=== PATIENT | male | born 1940 | race Caucasian/White ===

== ENCOUNTER 2021-05-29 08:52 | Emergency (ER) | payer MEDICARE ==
[2021-05-29 09:54] LABS: #Eosinphils 0.1 thou/uL (0.0-0.7); #Lymphocytes 1.2 thou/uL (1.20-3.40); #Monocytes 0.5 thou/uL (0.11-0.59); #Neutrophils 2.7 thou/uL (1.40-6.50); %Basophils 0.3 % (0.0-1.0); %Eosinophils 2.4 % (0.0-10.0); %Lymphocytes 26.6 % (21.0-51.0); %Monocytes 10.7 % (0.0-10.0); Hemoglobin 13.6 g/dL (14.0-18.0); Mean Corpuscular HGB CONC 31.6 g/dL (32.0-36.0); Mean Corpuscular Hemoglobin 29.6 pg (27.0-31.0); Mean Corpuscular Volume 93.7 fL (78.0-98.0); Mean Platelet Volume 7.1 fL (7.4-10.4); Platelet Count 213 thou/uL (130-400); RBC Distribution Width 13.5 % (11.5-14.5); Red Blood Cell (RBC) Count 4.58 mill/uL (4.70-6.10); White Blood Cell (WBC) Count 4.4 thou/uL (4.8-10.8)
[2021-05-29 09:55] LABS: ALT (SGPT) Less than 7 U/L (8-55); AST (SGOT) 18 U/L (5-34); Albumin 3.3 g/dL (3.4-4.8); Alkaline Phosphatase 70 U/L (40-110); Anion Gap 15 mmol/L (10-20); BUN (Urea Nitrogen) 8 mg/dL (8.4-25.7); Bilirubin, Total 0.4 mg/dL (0.2-1.2); CK (CPK) 373 U/L (30-200); Calc. Creatinine Clearance 0 mL/min (70-130); Calcium 9.3 mg/dL (7.8-10.44); Carbon Dioxide 20 mmol/L (23-31); Chloride 105 mmol/L (98-107); Globulin 2.9 g/dL (2.4-3.5); Glucose 96 mg/dL (83-110); Lipase 9 U/L (8-78); Potassium 3.7 mmol/L (3.5-5.1); Protein, Total 6.2 g/dL (5.8-8.1); Sodium 136 mmol/L (136-145)
== END 2021-05-29 15:19 | disposition home or self-care (01) ==
LOC: ERS 08:52
DX: R10.84 Generalized abdominal pain (principal); R53.1 Weakness; R11.2 Nausea with vomiting, unspecified; T50.B95A Adverse effect of other viral vaccines, initial encounter; I48.91 Unspecified atrial fibrillation; Z79.01 Long term (current) use of anticoagulants; Z79.899 Other long term (current) drug therapy
CPT/HCPCS: 36415; 71045; 74177; 80053; 82550; 83690; 84484; 85025; 93005

== ENCOUNTER 2022-09-22 19:24 | Inpatient (IN) | payer OTHER, MEDICAID ==
[~2022-09-22 19:24] MED LIST: Iopamidol-370 76% 500 ML MDV (1 ML CHARGE) ONE
[2022-09-22] MEDS ORDERED: Ondansetron PF 4 MG/2 ML Vial ONE (19:57)
[2022-09-22 20:20] LABS: #Eosinphils 0.2 thou/uL (0.0-0.7); #Lymphocytes 1.7 thou/uL (1.20-3.40); #Monocytes 0.5 thou/uL (0.11-0.59); #Neutrophils 3.2 thou/uL (1.40-6.50); %Basophils 0.8 % (0.0-1.0); %Eosinophils 2.8 % (0.0-10.0); %Monocytes 8.2 % (0.0-10.0); %Neutrophils 57.2 % (42.0-75.0); Hemoglobin 13.8 g/dL (14.0-18.0); Mean Corpuscular HGB CONC 33.3 g/dL (32.0-36.0); Mean Corpuscular Hemoglobin 30.9 pg (27.0-31.0); Mean Corpuscular Volume 92.7 fl (78.0-98.0); Mean Platelet Volume 7.9 fL (7.4-10.4); Platelet Count 246 10x3/uL (130-400); RBC Distribution Width 13.5 % (11.5-14.5); Red Blood Cell (RBC) Count 4.48 mill/uL (4.70-6.10); White Blood Cell (WBC) Count 5.6 10x3/uL (4.8-10.8)
[2022-09-22 20:35] LABS: Bilirubin Negative (Negative); Blood, Urine Negative (Negative); Clarity Clear (Clear); Glucose, Urine (Dipstick) Normal (Negative); Ketone, Urine Trace mg/dL (Negative); Leukocyte Negative Leu/uL (Negative); Nitrite Negative (Negative); Protein, Urine (Dipstick) 10 mg/dL (Neg-Trace); Specific Gravity, Urine 1.032 (1.002-1.036); Urobilinogen Normal mg/dL (Less than 2)
[2022-09-22 21:10] LABS: ALT (SGPT) 18 U/L (8-55); AST (SGOT) 28 U/L (5-34); Albumin 4.1 g/dL (3.4-4.8); Alkaline Phosphatase 87 U/L (40-110); Anion Gap 17 mmol/L (10-20); BUN (Urea Nitrogen) 22 mg/dL (8.4-25.7); Bilirubin, Total 0.4 mg/dL (0.2-1.2); Calc. Creatinine Clearance 0 mL/min (70-130); Carbon Dioxide 24 mmol/L (23-31); Chloride 103 mmol/L (98-107); Estimated GFR 77; Globulin 2.8 g/dL (2.4-3.5); Glucose 158 mg/dL (83-110); Lipase 15 U/L (8-78); Potassium 4.3 mmol/L (3.5-5.1); Protein, Total 6.9 g/dL (5.8-8.1); Sodium 140 mmol/L (136-145)
[2022-09-22] MEDS ORDERED: Morphine 2 MG/ML VIAL ONE (21:49)
[2022-09-23 00:49] VITALS: BMI 20.3
[2022-09-23] MEDS ORDERED: Ondansetron PF 4 MG/2 ML Vial IVP PRN ×2 (00:54→01:00)
[2022-09-23] MEDS ORDERED: Acetaminophen 325 MG TAB PO PRN (00:54)
[2022-09-23] MEDS ORDERED: Acetaminophen 650 MG Suppository PR PRN (00:54)
[2022-09-23] MEDS ORDERED: Ondansetron ODT 4 MG TAB PO PRN (00:54)
[2022-09-23] MEDS ORDERED: Ondansetron ODT 4 MG TAB SL PRN (01:00)
[2022-09-23] MEDS ORDERED: Sodium Chloride 0.9% 1,000 ML IV SCH (01:00)
[2022-09-23] MEDS: Sodium Chloride 0.9% 1,000 ML IV SCH ×3 (03:03→20:45)
[2022-09-23 06:58] LABS: #Eosinphils 0.2 thou/uL (0.0-0.7); #Lymphocytes 1.7 thou/uL (1.20-3.40); #Monocytes 0.6 thou/uL (0.11-0.59); %Basophils 0.1 % (0.0-1.0); %Eosinophils 3.4 % (0.0-10.0); %Neutrophils 54.5 % (42.0-75.0); Hemoglobin 12.2 g/dL (14.0-18.0); Mean Corpuscular HGB CONC 32.8 g/dL (32.0-36.0); Mean Corpuscular Hemoglobin 30.8 pg (27.0-31.0); Mean Corpuscular Volume 93.8 fl (78.0-98.0); Mean Platelet Volume 7.8 fL (7.4-10.4); Platelet Count 211 10x3/uL (130-400); RBC Distribution Width 13.5 % (11.5-14.5); Red Blood Cell (RBC) Count 3.97 mill/uL (4.70-6.10); White Blood Cell (WBC) Count 5.5 10x3/uL (4.8-10.8)
[2022-09-23 07:21] LABS: Anion Gap 12 mmol/L (10-20); BUN (Urea Nitrogen) 18 mg/dL (8.4-25.7); Calc. Creatinine Clearance 72 mL/min (70-130); Calcium 8.8 mg/dL (7.8-10.44); Carbon Dioxide 22 mmol/L (23-31); Chloride 108 mmol/L (98-107); Estimated GFR 91; Glucose 91 mg/dL (83-110); Potassium 4.2 mmol/L (3.5-5.1); Sodium 138 mmol/L (136-145)
[2022-09-23] MEDS: Carbidopa/Levodopa 25-250 mg Tablet PO SCH ×2 (10:04→19:41)
[2022-09-23] MEDS ORDERED: Bisacodyl 10 MG SUPP PR PRN (11:05)
[2022-09-23] MEDS ORDERED: Polyethylene Glycol 3350 17 GM Packet PO PRN (11:06)
[2022-09-23] MEDS ORDERED: Ketorolac Tromethamine 30 MG/ML VIAL IVP PRN (12:05)
[2022-09-23] MEDS: Senokot S 8.6-50 MG TAB PO SCH (19:42)
[2022-09-24] MEDS: Senokot S 8.6-50 MG TAB PO SCH ×3 (08:03→21:29)
[2022-09-24] MEDS: Carbidopa/Levodopa 25-250 mg Tablet PO SCH ×3 (08:03→21:29)
[2022-09-24] MEDS: Sodium Chloride 0.9% 1,000 ML IV SCH ×2 (08:03→17:45)
[2022-09-24] MEDS ORDERED: Ondansetron HCl/PF 4 MG/2 ML Vial IVP PRN (16:52)
[2022-09-24] MEDS ORDERED: Lidocaine 1% PF 5 ML VIAL ONE (17:02)
[2022-09-24] MEDS ORDERED: PROPOFOL 200 MG/20 ML VIAL ONE (17:02)
[2022-09-24] MEDS: Pantoprazole 40 MG VIAL IVP SCH (21:27)
[2022-09-24] MEDS ORDERED: Morphine 4 MG/ML VIAL SLOW IVP SCH (21:45)
[2022-09-24] MEDS ORDERED: Bisacodyl 10 MG SUPP PR SCH (22:00)
[2022-09-24] MEDS ORDERED: Bisacodyl 10 MG SUPP PR PRN (22:15)
[2022-09-25] MEDS: Sodium Chloride 0.9% 1,000 ML IV SCH ×3 (01:36→21:03)
[2022-09-25 06:19] LABS: #Lymphocytes 1.3 thou/uL (1.20-3.40); #Monocytes 0.6 thou/uL (0.11-0.59); #Neutrophils 7.8 thou/uL (1.40-6.50); %Basophils 0.2 % (0.0-1.0); %Eosinophils 0.4 % (0.0-10.0); %Lymphocytes 13.3 % (21.0-51.0); %Monocytes 5.9 % (0.0-10.0); %Neutrophils 80.3 % (42.0-75.0); Hemoglobin 11.1 g/dL (14.0-18.0); Mean Corpuscular Hemoglobin 30.3 pg (27.0-31.0); Mean Corpuscular Volume 94.5 fl (78.0-98.0); Platelet Count 199 10x3/uL (130-400); RBC Distribution Width 13.5 % (11.5-14.5); Red Blood Cell (RBC) Count 3.65 mill/uL (4.70-6.10); White Blood Cell (WBC) Count 9.7 10x3/uL (4.8-10.8)
[2022-09-25 06:42] LABS: Anion Gap 18 mmol/L (10-20); BUN (Urea Nitrogen) 15 mg/dL (8.4-25.7); Calc. Creatinine Clearance 71 mL/min (70-130); Calcium 8.5 mg/dL (7.8-10.44); Carbon Dioxide 15 mmol/L (23-31); Chloride 111 mmol/L (98-107); Estimated GFR 90; Glucose 104 mg/dL (83-110); Potassium 3.6 mmol/L (3.5-5.1); Sodium 140 mmol/L (136-145)
[2022-09-25] MEDS: Pantoprazole 40 MG VIAL IVP SCH ×2 (08:52→21:03)
[2022-09-25] MEDS: Carbidopa/Levodopa 25-250 mg Tablet PO SCH ×2 (08:53→20:56)
[2022-09-25] MEDS: Senokot S 8.6-50 MG TAB PO SCH ×2 (08:53→20:56)
[2022-09-25] MEDS: Morphine 2 MG/ML VIAL SLOW IVP PRN ×2 (15:20→21:00)
[2022-09-25] MEDS: Apixaban 5 MG TAB PO SCH (20:56)
[2022-09-25] MEDS: Morphine 4 MG/ML VIAL SLOW IVP PRN (21:40)
[2022-09-25] MEDS: Lorazepam 2 MG/ML VIAL SLOW IVP PRN (21:42)
[2022-09-26] MEDS: Sodium Chloride 0.9% 1,000 ML IV SCH ×2 (05:23→18:11)
[2022-09-26 06:33] LABS: #Eosinphils 0.1 thou/uL (0.0-0.7); #Lymphocytes 1.2 thou/uL (1.20-3.40); #Monocytes 0.5 thou/uL (0.11-0.59); #Neutrophils 2.9 thou/uL (1.40-6.50); %Eosinophils 2.6 % (0.0-10.0); %Lymphocytes 25.6 % (21.0-51.0); %Neutrophils 61.7 % (42.0-75.0); Hemoglobin 10.4 g/dL (14.0-18.0); Mean Corpuscular HGB CONC 33.7 g/dL (32.0-36.0); Mean Corpuscular Hemoglobin 31.3 pg (27.0-31.0); Mean Corpuscular Volume 92.9 fl (78.0-98.0); Mean Platelet Volume 8.1 fL (7.4-10.4); Platelet Count 168 10x3/uL (130-400); RBC Distribution Width 13.6 % (11.5-14.5); Red Blood Cell (RBC) Count 3.32 mill/uL (4.70-6.10); White Blood Cell (WBC) Count 4.7 10x3/uL (4.8-10.8)
[2022-09-26 06:44] LABS: Anion Gap 8 mmol/L (10-20); BUN (Urea Nitrogen) 12 mg/dL (8.4-25.7); Calc. Creatinine Clearance 83 mL/min (70-130); Carbon Dioxide 20 mmol/L (23-31); Chloride 114 mmol/L (98-107); Estimated GFR 95; Glucose 111 mg/dL (83-110); Potassium 3.4 mmol/L (3.5-5.1); Sodium 139 mmol/L (136-145)
[2022-09-26] MEDS ORDERED: Potassium Bicarbonate/Cit Ac 20 MEQ TAB PO SCH (08:00)
[2022-09-26] MEDS: Morphine 4 MG/ML VIAL SLOW IVP PRN ×3 (08:51→20:53)
[2022-09-26] MEDS: Pantoprazole 40 MG VIAL IVP SCH ×2 (08:53→20:45)
[2022-09-26] MEDS: Lorazepam 2 MG/ML VIAL SLOW IVP PRN ×3 (08:53→20:49)
[2022-09-26] MEDS: Apixaban 5 MG TAB PO SCH (09:07)
[2022-09-26] MEDS: Senokot S 8.6-50 MG TAB PO SCH ×2 (09:07→21:05)
[2022-09-26] MEDS: Carbidopa/Levodopa 25-250 mg Tablet PO SCH ×2 (09:07→21:05)
[2022-09-27] MEDS: Sodium Chloride 0.9% 1,000 ML IV SCH ×2 (03:46→13:38)
[2022-09-27] MEDS: Morphine 4 MG/ML VIAL SLOW IVP PRN ×4 (04:59→17:04)
[2022-09-27] MEDS: Pantoprazole 40 MG VIAL IVP SCH (09:31)
[2022-09-27] MEDS: Senokot S 8.6-50 MG TAB PO SCH (09:32)
[2022-09-27] MEDS: Carbidopa/Levodopa 25-250 mg Tablet PO SCH (09:32)
[2022-09-27 16:42] VITALS: BP 155/69; TEMP 98.9
[2022-10-01] MEDS ORDERED: Apixaban 5 MG TAB PO SCH (21:00)
[2022-10-04] MEDS ORDERED: Apixaban 5 MG TAB PO SCH (09:00)
[2022-10-07] MEDS ORDERED: Apixaban 5 MG TAB PO SCH (09:00)
== END 2022-09-27 18:09 | DRG 392 ==
LOC: ERS 19:24 → T4-B 22:45 → OBSVTOIN 09-25 10:54
PROVIDERS: ADMIT Student in an Organized Health Care Education/Training Program; ATTEND Hospitalist
PROC: 0D758ZZ Dilation of Esophagus, Via Natural or Artificial Opening Endoscopic (ICD-10-PCS; principal; 2022-09-24)
PROC: 0DB48ZX Excision of Esophagogastric Junction, Via Natural or Artificial Opening Endoscopic, Diagnostic (ICD-10-PCS; 2022-09-24)
PROC: 0DB68ZX Excision of Stomach, Via Natural or Artificial Opening Endoscopic, Diagnostic (ICD-10-PCS; 2022-09-24)
DX: K22.2 Esophageal obstruction (principal); E44.1 Mild protein-calorie malnutrition; I82.411 Acute embolism and thrombosis of right femoral vein; K25.9 Gastric ulcer, unspecified as acute or chronic, without hemorrhage or perforation; R13.12 Dysphagia, oropharyngeal phase; Z66 Do not resuscitate; G20 Parkinson's disease; I48.91 Unspecified atrial fibrillation; J44.9 Chronic obstructive pulmonary disease, unspecified; I25.10 Atherosclerotic heart disease of native coronary artery without angina pectoris; K21.9 Gastro-esophageal reflux disease without esophagitis; I10 Essential (primary) hypertension; K29.70 Gastritis, unspecified, without bleeding; I27.20 Pulmonary hypertension, unspecified; H40.9 Unspecified glaucoma; F32.A Depression, unspecified; F41.9 Anxiety disorder, unspecified; K22.70 Barrett's esophagus without dysplasia; K59.01 Slow transit constipation; K29.80 Duodenitis without bleeding; F02.80 Dementia in other diseases classified elsewhere, unspecified severity, without behavioral disturbance, psychotic disturbance, mood disturbance, and anxiety; L89.629 Pressure ulcer of left heel, unspecified stage; E11.9 Type 2 diabetes mellitus without complications; Z68.20 Body mass index [BMI] 20.0-20.9, adult; Z86.73 Personal history of transient ischemic attack (TIA), and cerebral infarction without residual deficits; Z85.01 Personal history of malignant neoplasm of esophagus; Z92.3 Personal history of irradiation; Z79.899 Other long term (current) drug therapy; Z88.2 Allergy status to sulfonamides; Z74.01 Bed confinement status; Z90.89 Acquired absence of other organs; Z98.49 Cataract extraction status, unspecified eye; Z92.21 Personal history of antineoplastic chemotherapy; Z79.01 Long term (current) use of anticoagulants
CPT/HCPCS: 36415; 36416; 51701; 71045; 74177; 80048; 80053; 81003; 83690; 84484; 85025; 85652; 86140; 87086; 87338; 88305; 88342; 93005; 96361; 96372; 96374; 96375; 96376; 97139; C9113; G0378; J1650; J1885; J2060; J2270; J2272; J2405; J2704; J7050; Q9967